=== PATIENT | female | born 1950 | race Asian ===

== ENCOUNTER 2018-01-22 06:42 | Emergency (ER) | payer OTHER ==
[~2018-01-22] VITALS: Ht 152.4 cm; Wt 49.9 kg
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
[2018-01-22] MEDS ORDERED: ACETAMINOPHEN 325 MG TABLET PO ONE (07:00)
[2018-01-22] MEDS ORDERED: ACETAMINOPHEN 650 MG/20.3 ML UDC ONE (07:01)
[2018-01-22] MEDS ORDERED: ACETAMINOPHEN 325 MG TABLET ONE (07:03)
--- NOTE | 2018-01-22 07:05 | NUR ---
PT BROUGHT TO X RAY
--- NOTE | 2018-01-22 07:09 | NUR ---
PT ENDORSED TO ONCOMING DAY SHIFT RN LUDIVINA. PT STABLE CONDITION. NAD.
[2018-01-22] MEDS ORDERED: IV NS 0.9% 1,000 ML BAG IV ONE (07:30)
[2018-01-22 08:05] LABS: BASOPHILS % (AUTO) 0.8 % (0.0-2.0); EOSINOPHILS % (AUTO) 1.8 % (0.0-6.0); HEMATOCRIT 41 % (33-45); HEMOGLOBIN 13.2 g/dL (11.5-14.8); LYMPHOCYTES # (AUTO) 1.2 /CMM (0.8-4.8); LYMPHOCYTES % (AUTO) 25.4 % (20.0-44.0); MEAN CORPUSCULAR HGB CONC 32 g/dl (31.0-36.0); MEAN CORPUSCULAR VOLUME 97 fL (82-100); MONOCYTES # (AUTO) 0.3 /CMM (0.1-1.30); MONOCYTES % (AUTO) 6.5 % (2.0-12.0); NEUTROPHILS # (AUTO) 3.1 /CMM (1.8-8.9); NEUTROPHILS % (AUTO) 65.5 % (43.0-81.0); PLATELET COUNT (AUTO) 179 /CMM (150-450); RDW COEFFICIENT OF VARIATION 12.8 (11.5-15.0); RED BLOOD CELL COUNT(AUTO) 4.23 MIL/uL (4.0-5.2); WHITE BLOOD COUNT (AUTO) 4.7 K/uL (4.3-11.0)
[2018-01-22 08:06] LABS: CALCIUM, SERUM 8.8 mg/dL (8.5-10.1); CREATININE 0.8 mg/dL (0.6-1.3); POTASSIUM 3.6 mmol/L (3.5-5.1)
[2018-01-22] MEDS ORDERED: IV NS 0.9% 250 ML IV ONE (08:18)
[2018-01-22] MEDS ORDERED: CT SWABBABLE VALVE TRANS SET 1 EA INFUS.SET MC ONE (08:18)
[2018-01-22] MEDS ORDERED: IOHEXOL-300 100 ML VIAL IV ONE (08:18)
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
--- NOTE | 2018-01-22 10:09 | NUR ---
Patient discharged to home in stable condition. Written and verbal after care instructions given. Patient verbalizes understanding of instruction.IV removed. Catheter intact and site benign. Pressure and 4x4 applied to site. No bleeding noted.
[2018-01-22 10:11] VITALS: BP 158/75
== END 2018-01-22 10:12 | disposition home or self-care (01) ==
LOC: ER 06:44
DX: S20.212A Contusion of left front wall of thorax, initial encounter (principal); S20.211A Contusion of right front wall of thorax, initial encounter; I10 Essential (primary) hypertension; I49.8 Other specified cardiac arrhythmias; V43.52XA Car driver injured in collision with other type car in traffic accident, initial encounter; Y93.89 Activity, other specified; Y92.488 Other paved roadways as the place of occurrence of the external cause; Y99.8 Other external cause status
CPT/HCPCS: 36415; 71046; 71260; 80048; 85025; 93005; 99285; A4606; J7030; J7050; Q9967; Z7610